=== PATIENT | male | born 1935 | race Caucasian/White ===

== ENCOUNTER 2018-03-02 07:35 | Inpatient (IN) | payer MEDICARE, MEDICAID ==
[2018-03-02] MEDS ORDERED: Albuterol/Ipratropium Neb 3 ML AERS HHN ONE ×2 (08:25→09:11)
--- NOTE | 2018-03-02 08:30 | ED Physician Chart ---
ED Chief Complaint/HPI - Patient Information Date Seen:: 03/02/18 Time Seen:: 07:50 Chief Complaint:: Fever History of Present Illness:: onset x 3 days of fever, cough, and congestion; no report of trauma, H/As, S/T, neck pain, C/P, SOB, Abd. Pain, A/N/V/D/C, chills, or urinary s/s; Allergies:: Allergies Allergy/AdvReac Type Severity Reaction Status Date / Time No Known Allergies Allergy Verified 03/02/18 07:51 Vitals:: Vital Signs - 8 hr 03/02/18 07:51 Temp 97.5 F HR 74 RR 16 BP 137/65 O2 Sat % 96 Historian:: Patient, EMS Review:: Nurse's Note Reviewed, Old Chart Reviewed, EMS run form Reviewed ED Review of Systems - Review of Systems General/Constitutional: Fever, No chills, No weight loss, No weakness, No diaphoresis, No edema, No loss of appetite Skin: No skin lesions, No rash, No bruising Head: No headache, No light-headedness Eyes: No loss of vision, No pain, No diplopia ENT: No earache, Nasal drainage, No sore throat, No tinnitus Neck: No neck pain, No swelling, No thyromegaly, No stiffness, No mass noted Cardio Vascular: No chest pain, No palpitations, No PND, No orthopnea, No edema Pulmonary: SOB, Cough, No sputum, Wheezing GI: No nausea, No vomiting, No diarrhea, No pain, No melena, No hematochezia, No constipation, No hematemesis G/U: No dysuria, No frequency, No hematuria, No nacturia Musculoskeletal: No bone or joint pain, No back pain, No muscle pain Endocrine: No polyuria, No polydipsia Psychiatric: No prior psych history, No depression, No anxiety, No suicidal ideation, No homicidal ideation, No auditory hallucination, No visual hallucination Hematopoietic: No bruising, No lymphadenopathy Allergic/Immuno: No urticaria, No angioedema Neurological: No syncope, No focal symptoms, No weakness, No paresthesia, No headache, No seizure, No dizziness, No confusion, No vertigo ED Past Medical History - Past Medical History Obtainable: Yes Past Medical History: HTN, DM, Asthma/COPD, PUD/GERD Family History: Diabetes Melitus, HTN Social History: Smoker, No Alcohol, No Drug Use, Single, Care Facility Surgical History: None Psychiatricy History: None Medication: Reviewed Family Medical History - Family Member Mother History Unknown: Yes ED Physical Exam - Physical Examination General/Constitutional: Awake, Well-developed, well-nourished, Alert, No distress, GCS 15, Non-toxic appearing, Ambulatory Head: Atraumatic Eyes: Lids, conjuctiva normal, PERRL, EOMI Skin: Nl inspection, No rash, No skin lesions, No ecchymosis, Well hydrated, No lymphadenopathy ENMT: External ears, nose nl, TM canals nl, Nasal exam nl, Lips, teeth, gums nl , Oropharynx nl, Tonsils nl Neck: Nontender, Full ROM w/o pain, No JVD, No nuchal rigidity, No bruit, No mass, No stridor Respiratory: Nl effort/Exclusion Other Respiratory comments:: Lungs: + Rales, Rhonchi, and Wheezes Cardio Vascular: RRR, No murmur, gallop, rubs, NL S1 S2, Carotid/Femoral/Distal pulses equal bilaterally GI: No tenderness/rebounding/guarding, No organomegaly, No hernia, Normal BS's, Nondistended, No mass/bruits, No McBurney tenderness : No CVA tenderness Extremities: No tenderness or effusion, Full ROM, normal strength in all extremities, No edema, Normal digits & nails Neuro/Psych: Alert/oriented, DTR's symmetric, Normal sensory exam, Normal motor strength, Judgement/insight normal, Mood normal, Normal gait, No focal deficits Misc: Normal back, No paraspinal tenderness ED Labs/Radiology/EKG Results - Lab Results Comments:: unremarkable - Radiology Results Comments:: COPD; NAD - EKG Interpretations EKG Time:: 09:17 Rate & Rhythm: 61; NSR Comments:: non-specific st-t changes ED Septic Shock - . Is Septic Shock (SBP<90, OR Lactate>4 mmol\L) present?: No - <6hrs of presentation: Vital Signs: Vital Signs - 8 hr 03/02/ 07:51 Temp 97.5 F HR 74 RR 16 BP 137/65 O2 Sat % 96 ED Reassessment (Disposition) - Reassessment Reassessment Condition:: Improved - Diagnosis Diagnosis:: Dx: Cough; Congestion; Fever; Exacerbation of COPD; Acute Bronchitis - Aftercare/Follow up Instructions Aftercare/Follow-Up Instructions:: Counseled pt regarding lab results/diagnosis & need follow up, Counseled pt & family regarding lab results/diagnosis & need follow up - Patient Disposition Discharge/Transfer:: Acute Care w/in this hosp Accepting Physician:: Dr. Castañeda Time Called:: 944 Time Responded:: 09:45 Admitted to:: Med/Surg Spoke to:: Dr. Castañeda Admitting Medical Physician:: Dr. Castañeda Condition at Disposition:: Stable, Improved
[2018-03-02 08:56] LABS: % BASOPHILS 1.6 % (0.0-2.0); % EOSINOPHILS 24.3 % (0.0-5.0); % LYMPHOCYTES 17.6 % (20.0-50.0); % MONOCYTES 6.7 % (2.0-10.0); % NEUTROPHILS 49.8 % (40.0-80.0); BASOPHILE ABSOLUTE 0.1 Th/cumm (0-0.2); EOSINOPHILE ABSOLUTE 1.7 Th/cmm (0.1-0.4); HEMATOCRIT 38.7 % (41.0-60); HEMOGLOBIN 13.2 gm/dL (12-16); LYMPHOCYTE ABSOLUTE 1.2 Th/cmm (1.5-3.0); MEAN CELL VOLUME 91.9 fl (80-99); MEAN CORPUSCULAR HEMOGLOBIN 31.3 pg (27.0-31.0); MEAN PLATELET VOLUME 10.8 fl; MONOCYTE ABSOLUTE 0.5 Th/cmm (0.3-1.0); NEUTROPHILE ABSOLUTE 3.4 Th/cmm (1.8-8.0); PLATELET COUNT 173 Th/cmm (150-400); RED BLOOD COUNT 4.21 Mil/cmm (3.80-5.80); RED CELL DISTRIBUTION WIDTH 12.8 % (11.5-20.0); WHITE BLOOD COUNT 6.9 Th/cmm (4.8-10.8)
[2018-03-02 09:12] LABS: INR 1.03 (0.5-1.4); PROTHROMBIN TIME (TEST) 10.7 SECONDS (9.5-11.5)
[2018-03-02 09:13] LABS: ALB/GLOB RATIO 1.3 (1.0-1.8); ALKALINE PHOSPHATASE 94 U/L (34-104); ANION GAP 9.4 (7.0-16.0); BILIRUBIN,TOTAL 0.5 mg/dL (0.3-1.0); BUN - UREA NITROGEN 19 mg/dL (7-25); CALCIUM SERUM 9.4 mg/dL (8.6-10.3); CARBON DIOXIDE 30.1 mEq/L (21.0-31.0); CHLORIDE 105 mEq/L (98-107); CREATININE - SERUM 0.8 mg/dL (0.7-1.3); CREATININE KINASE 65 U/L (30-223); GLUCOSE 162 mg/dL (70-105); POTASSIUM SERUM 4.5 mEq/L (3.5-5.1); SGOT 15 U/L (13-39); SGPT/ALT 15 U/L (7-52); SODIUM SERUM 140 mEq/L (136-145)
--- NOTE | 2018-03-02 09:19 | Diagnostic Imaging Report ---
Portable chest x-ray HISTORY: Pain The overall heart size is difficult to assess with portable technique. Atherosclerotic calcification seen in the aorta. No acute pulmonary processes. A 3 mm calcified nodule is noted in the left lung base consistent with old granulomatous disease. IMPRESSION: 1. No acute pulmonary processes
[2018-03-02 09:24] LABS: URINE MICROSCOPIC INDICATED? YES; URINE SOURCE MIDSTREAM
[2018-03-02 09:40] LABS: URINE BILIRUBIN NEGATIVE (NEGATIVE); URINE BLOOD NEGATIVE (NEGATIVE); URINE GLUCOSE (UA) NEGATIVE (NEGATIVE); URINE KETONE NEGATIVE (NEGATIVE); URINE LEUKOCYTE ESTERASE NEGATIVE (NEGATIVE); URINE NITRATE NEGATIVE (NEGATIVE); URINE PH 5.5 (4.6 - 8.0); URINE PROTEIN NEGATIVE (NEGATIVE); URINE UROBILINOGEN 0.2 E.U./dL (0.2 - 1.0)
[2018-03-02 09:44] LABS: URINE CLARITY CLEAR (CLEAR); URINE COLOR YELLOW
[2018-03-02 09:48] LABS: URINE BACTERIA OCCASIONAL /hpf (NONE SEEN); URINE EPITHELIAL CELLS FEW /lpf (FEW); URINE RBC NONE SEEN /hpf (0-5); URINE WBC 0-2 /hpf (0-5)
[2018-03-02] MEDS ORDERED: Levofloxacin 500mg/100mL 500 MG/100 ML BAG IV ONE (10:04)
[2018-03-02 11:02] VITALS: BP 149/69
[2018-03-02 11:49] LABS: CHOLESTEROL 171 mg/dL (<200); HDL -HIGH DENSITY LIPOPROTEIN 60 mg/dL (23-92); TRIGLYCERIDES 70 mg/dL (<150)
[2018-03-02] MEDS: Multivitamin Tab PO SCH (12:31)
[2018-03-02] MEDS: Azithromycin 500 MG in Sodium Chloride 0.9% 250 ML IV SCH (13:26)
[2018-03-02] MEDS: cefTRIAXone 1 GM in Sodium Chloride 0.9% 50 ML IV SCH (14:31)
[2018-03-02] MEDS ORDERED: INSULIN ASPART, RECOMBINANT 100 UNITS/ML SUBQ SCH (16:30)
[2018-03-02] MEDS: INSULIN ASPART SLIDING SCALE 100 UNITS/ML UNIT SUBQ SCH ×2 (17:30→23:04)
[2018-03-02] MEDS: Albuterol Nebulizer 2.5mg/3mL HHN PRN ×2 (18:54→22:36)
--- NOTE | 2018-03-02 20:31 | History and Physical ---
History of Present Illness - HPI Chief Complaint: fever and cough HPI: This is a 82 year old male who is a [facility] patient admitted for a 3 day history of fever, cough, and congestion. Vital Signs: Last Vital Signs Temp 97.7 F 03/02/18 20:00 Pulse 92 03/02/18 20:00 Resp 19 03/02/18 20:00 BP 131/68 03/02/18 20:00 Pulse Ox 96 03/02/18 20:00 Past Medical History Other History: HTN, DM, Asthma/COPD, PUD/GERD Family Medical History - Family Member Mother History Unknown: Yes Ethnicity: Social History Smoke: Quit Alcohol: None Drugs: None Lives: [facility] - Medications Home Medications: Home Medication Medication Instructions Recorded Type Acetaminophen [Pain Reliever] 650 mg PO Q4H PRN MDD 3g 03/02/18 History Albuterol Nebulizer 2.5mg/3mL 1 unit HHN Q4H PRN 03/02/18 History [Albuterol Neb UD*] Albuterol Sulfate [Ventolin Hfa] 2 puff IH Q4H PRN 03/02/18 History Ascorbic Acid 1 tab PO DAILY 03/02/18 History Docusate Sodium [Col-Rite] 1 tab PO BID 03/02/18 History Finasteride [Proscar*] 1 tab PO DAILY 03/02/18 History Fleet Enema 1 bot RC DAILY PRN 03/02/18 History Insulin Human Regular [NovoLIN R] 0 units SUBQ ACHS 03/02/18 History Magnesium Hydroxide [Milk of 30 ml PO DAILY PRN 03/02/18 History Magnesia] Multivitamin [Multivitamins] 1 cap PO DAILY 03/02/18 History Mylanta 500 mg PO Q6H PRN 03/02/18 History Tamsulosin HCl [Flomax] 1 tab PO DAILY 03/02/18 History - Allergies Allergies/Adverse Reactions: Allergies Allergy/AdvReac Type Severity Reaction Status Date / Time No Known Allergies Allergy Verified 03/02/18 07:51 Review of Systems - Review of Systems Constitutional: Report: Fever Eyes: Report: No Significant Respiratory: Report: Cough Cardiovascular: Report: No Significant Neurological: Report: No Significant Physical Exam - Physical Exam HEENT: Report: Ears Nose Throat within normal limits Neck: Report: Within normal limits Cardiovascular Systems: Report: +s1/s2 noted, Regular, Rate and Rhythm Respiratory: Report: Rhonchi Abdomen: Report: Non-tender to palpation - Assessment Assessment: COPD EXACERBATION ACUTE BRONCHITIS FEBRILE HTN DM GERD - Plan Plan: PULMO CONSULT RESPIRATORY TX/O2 CONTINUE THE REST OF THE ORDERS
[2018-03-02] MEDS ORDERED: Promethazine DM 6.25/15mg-5mL 5 ML SYR PO PRN (22:40)
[2018-03-02] MEDS ORDERED: Budesonide 0.5 Mg/2 mL Ud HHN ONE (22:49)
[2018-03-03] MEDS ORDERED: Albuterol Nebulizer 2.5mg/3mL HHN ONE (05:28)
[2018-03-03] MEDS: Albuterol Nebulizer 2.5mg/3mL HHN SCH ×6 (05:31→23:40)
[2018-03-03 06:44] LABS: % BASOPHILS 0.1 % (0.0-2.0); % EOSINOPHILS 0.1 % (0.0-5.0); % LYMPHOCYTES 10.8 % (20.0-50.0); % MONOCYTES 0.8 % (2.0-10.0); % NEUTROPHILS 88.2 % (40.0-80.0); HEMATOCRIT 38.6 % (41.0-60); HEMOGLOBIN 13.2 gm/dL (12-16); LYMPHOCYTE ABSOLUTE 0.8 Th/cmm (1.5-3.0); MEAN CELL VOLUME 92.2 fl (80-99); MEAN CORPUSCULAR HEMOGLOBIN 31.7 pg (27.0-31.0); MEAN CORPUSCULAR HGB CONC 34.3 pg (28.0-36.0); MEAN PLATELET VOLUME 10.8 fl; MONOCYTE ABSOLUTE 0.1 Th/cmm (0.3-1.0); NEUTROPHILE ABSOLUTE 6.8 Th/cmm (1.8-8.0); PLATELET COUNT 159 Th/cmm (150-400); RED BLOOD COUNT 4.18 Mil/cmm (3.80-5.80); RED CELL DISTRIBUTION WIDTH 12.6 % (11.5-20.0); WHITE BLOOD COUNT 7.7 Th/cmm (4.8-10.8)
[2018-03-03] MEDS ORDERED: Budesonide 0.5 Mg/2 mL Ud HHN SCH ×2 (07:00→22:44)
[2018-03-03 07:07] LABS: BUN - UREA NITROGEN 24 mg/dL (7-25); CALCIUM SERUM 9.6 mg/dL (8.6-10.3); CARBON DIOXIDE 29.3 mEq/L (21.0-31.0); CHLORIDE 102 mEq/L (98-107); CREATININE - SERUM 0.8 mg/dL (0.7-1.3); GLUCOSE 230 mg/dL (70-105); POTASSIUM SERUM 4.3 mEq/L (3.5-5.1); SODIUM SERUM 137 mEq/L (136-145)
[2018-03-03] MEDS: Budesonide 0.5 Mg/2 mL Ud HHN SCH ×2 (07:49→19:40)
[2018-03-03] MEDS: INSULIN ASPART SLIDING SCALE 100 UNITS/ML UNIT SUBQ SCH ×4 (08:15→20:09)
[2018-03-03] MEDS: Multivitamin Tab PO SCH (08:19)
[2018-03-03] MEDS ORDERED: Probiotic Screen MC PRN (11:43)
[2018-03-03] MEDS: Azithromycin 500 MG in Sodium Chloride 0.9% 250 ML IV SCH (12:48)
--- NOTE | 2018-03-03 14:02 | Consultation ---
DATE OF CONSULTATION: 03/02/2018 REFERRING PHYSICIAN: Gabby Castañeda M.D. Thank you very much Dr. Castañeda for this consultation. HISTORY OF PRESENT ILLNESS: This is an 82-year-old male who presents with cough, congestion, and shortness of breath for few days along with some fever. The patient was admitted for treatment and medication. The patient started IV antibiotics and nebulizer treatment. The patient has history of smoking for many years. He has past history of COPD as well. The patient appears to be comfortable, but still having some cough and shortness of breath with minimal exertion. PAST MEDICAL HISTORY: As above. SOCIAL HISTORY: Ex-smoker. REVIEW OF SYSTEMS: GENERAL: No weakness or fatigue. CARDIOVASCULAR: No chest pain. No palpitation. RESPIRATORY: Shortness of breath, cough, wheezing. GASTROINTESTINAL: No nausea or vomiting. PHYSICAL EXAMINATION: GENERAL: Awake, alert, not in acute distress. VITAL SIGNS: Temperature , pulse 78, respirations 20, blood pressure /74, and saturation 95% to 96%. HEENT: Atraumatic and normocephalic. Pupils react to light and accommodation. Ears, nose and throat normal. NECK: Supple. No JVD. CHEST: There is diffuse wheezing and rhonchi bilaterally. LABORATORY DATA: WBC 6.9, hemoglobin 13.2, and platelets is 173. Sodium 140, potassium 4.5, BUN is 19, and creatinine 0.8. The chest x-ray, no acute infiltrate. IMPRESSION: 1. This is an 82-year-old male with acute chronic obstructive pulmonary disease exacerbation. 2. Acute bronchitis. PLAN: 1. IV antibiotics. 2. IV Solu-Medrol. 3. Supportive care and pulmonary toilet. Thank you very much for this consultation. We will follow the patient with you. JOB# [id number]
[2018-03-03] MEDS: cefTRIAXone 1 GM in Sodium Chloride 0.9% 50 ML IV SCH (14:07)
--- NOTE | 2018-03-03 14:24 | General Progress Note ---
Subjective - Review of Systems Events since last encounter: fever in no distress Objective - Results Result Diagrams: 03/03/18 06:20 03/03/18 06:20 Recent Labs: Laboratory Last Values WBC 7.7 Th/cmm (4.8-10.8) 03/03/18 06:20 RBC 4.18 Mil/cmm (3.80-5.80) 03/03/18 06:20 Hgb 13.2 gm/dL (12-16) 03/03/18 06:20 Hct 38.6 % (41.0-60) L 03/03/18 06:20 MCV 92.2 fl (80-99) 03/03/18 06:20 MCH 31.7 pg (27.0-31.0) H 03/03/18 06:20 MCHC Differential 34.3 pg (28.0-36.0) 03/03/18 06:20 RDW 12.6 % (11.5-20.0) 03/03/18 06:20 Plt Count 159 Th/cmm (150-400) 03/03/18 06:20 MPV 10.8 fl 03/03/18 06:20 Neutrophils % 88.2 % (40.0-80.0) H 03/03/18 06:20 Lymphocytes % 10.8 % (20.0-50.0) L 03/03/18 06:20 Monocytes % 0.8 % (2.0-10.0) L 03/03/18 06:20 Eosinophils % 0.1 % (0.0-5.0) 03/03/18 06:20 Basophils % 0.1 % (0.0-2.0) 03/03/18 06:20 PT 10.7 SECONDS (9.5-11.5) 03/02/18 08:35 INR 1.03 (0.5-1.4) 03/02/18 08:35 PTT (Actin FS) 26.5 SECONDS (26.0-38.0) 03/02/18 08:35 Sodium 137 mEq/L (136-145) 03/03/18 06:20 Potassium 4.3 mEq/L (3.5-5.1) 03/03/18 06:20 Chloride 102 mEq/L (98-107) 03/03/18 06:20 Carbon Dioxide 29.3 mEq/L (21.0-31.0) 03/03/18 06:20 Anion Gap 10.0 (7.0-16.0) 03/03/18 06:20 BUN 24 mg/dL (7-25) 03/03/18 06:20 Creatinine 0.8 mg/dL (0.7-1.3) 03/03/18 06:20 Est GFR ( Amer) TNP 03/03/18 06:20 Est GFR (Non-Af Amer) TNP 03/03/18 06:20 BUN/Creatinine Ratio 30.0 03/03/18 06:20 Glucose 230 mg/dL (70-105) H 03/03/18 06:20 POC Glucose 351 MG/DL (70 - 105) H 03/03/18 12:33 Whole Bld Lactic Acid 1.29 mmol/L (0.60-1.99) 03/02/18 08:35 Calcium 9.6 mg/dL (8.6-10.3) 03/03/18 06:20 Total Bilirubin 0.5 mg/dL (0.3-1.0) 03/02/18 08:35 AST 15 U/L (13-39) 03/02/18 08:35 ALT 15 U/L (7-52) 03/02/18 08:35 Alkaline Phosphatase 94 U/L (34-104) 03/02/18 08:35 Creatine Kinase 65 U/L (30-223) 03/02/18 08:35 Troponin I 0.01 ng/mL (0.01-0.05) 03/02/18 08:35 Total Protein 7.0 gm/dL (6.0-8.3) 03/02/18 08:35 Albumin 4.0 gm/dL (4.2-5.5) L 03/02/18 08:35 Globulin 3.0 gm/dL 03/02/18 08:35 Albumin/Globulin Ratio 1.3 (1.0-1.8) 03/02/18 08:35 Triglycerides 70 mg/dL (<150) 03/02/18 08:35 Cholesterol 171 mg/dL (<200) 03/02/18 08:35 LDL Cholesterol Direct 99 mg/dL (75-193) 03/02/18 08:35 HDL Cholesterol 60 mg/dL (23-92) 03/02/18 08:35 Prostate Specific Ag 1.1 ng/mL (0.0-4.0) 03/02/18 08:35 Urine Source MIDSTREAM 03/02/18 09:05 Urine Color YELLOW 03/02/18 09:05 Urine Clarity CLEAR (CLEAR) 03/02/18 09:05 Urine pH 5.5 (4.6 - 8.0) 03/02/18 09:05 Ur Specific [place] >= 1.030 (1.005-1.030) 03/02/18 09:05 Urine Protein NEGATIVE mg/dL (NEGATIVE) 03/02/18 09:05 Urine Glucose (UA) NEGATIVE mg/dL (NEGATIVE) 03/02/18 09:05 Urine Ketones NEGATIVE mg/dL (NEGATIVE) 03/02/18 09:05 Urine Blood NEGATIVE (NEGATIVE) 03/02/18 09:05 Urine Nitrate NEGATIVE (NEGATIVE) 03/02/18 09:05 Urine Bilirubin NEGATIVE (NEGATIVE) 03/02/18 09:05 Urine Urobilinogen 0.2 E.U./dL (0.2 - 1.0) 03/02/18 09:05 Ur Leukocyte Esterase NEGATIVE (NEGATIVE) 03/02/18 09:05 Urine RBC NONE SEEN /hpf (0-5) 03/02/18 09:05 Urine WBC 0-2 /hpf (0-5) 03/02/18 09:05 Ur Epithelial Cells FEW /lpf (FEW) 03/02/18 09:05 Urine Bacteria OCCASIONAL /hpf (NONE SEEN) 03/02/18 09:05 Urine Mucus FEW /lpf (FEW) 03/02/18 09:05 - Physical Exam Vitals and I&O: Vital Signs Temp 98.2 F 03/03/18 11:31 Pulse 85 03/03/18 12:30 Resp 18 03/03/18 12:30 BP 120/48 03/03/18 11:31 Pulse Ox 96 03/03/18 12:30 Intake & Output 03/02/18 03/03/18 03/03/18 18:59 06:59 18:59 Intake Total 250 Balance 250 Weight (lbs) 65.771 kg 81.647 kg Intake: Intake, IV Amount 250 Azithromycin 500 mg In 250 Sodium Chloride 0.9% 250 ml @ 250 mls/hr IV Q24HR [facility] Rx#:[id number] Other: # Voids 400 Weight Source Patient stated Bedscale Active Medications: Current Medications Albuterol Sulfate (Albuterol 2.5mg/3ml Neb Ud) 2.5 mg HHN Q4HRT [facility]ANNA Stop: 05/02/18 05:20 Last Admin: 03/03/18 12:30 Dose: 2.5 mg Ascorbic Acid (Vitamin C) 500 mg PO DAILY B[facility]ANNA Stop: 05/01/18 11:44 Last Admin: 03/03/18 08:19 Dose: 500 mg Budesonide (Pulmicort) 0.5 mg HHN BIDRT [facility]ANNA Stop: 05/02/18 06:59 Last Admin: 03/03/18 07:49 Dose: 0.5 mg Docusate Sodium (Colace) 100 mg PO DAILY [facility] Stop: 05/01/18 11:59 Last Admin: 03/03/18 08:19 Dose: 100 mg Finasteride (Proscar) 5 mg PO DAILY [facility]ANNA PRN Reason: Protocol Stop: 05/02/18 08:59 Last Admin: 03/03/18 08:19 Dose: 5 mg Azithromycin 500 mg/ Sodium (Chloride) 250 mls @ 250 mls/hr IV Q24HR [facility] Stop: 05/01/18 12:59 Last Admin: 03/03/18 12:48 Dose: 250 mls/hr Ceftriaxone Sodium 1 gm/ (Sodium Chloride) 50 mls @ 100 mls/hr IV Q24HR [facility] Stop: 05/01/18 13:59 Last Admin: 03/02/18 14:31 Dose: 100 mls/hr Insulin Aspart (Novolog Insulin Sliding Scale) 0 units SUBQ ACHS [facility] PRN Reason: Protocol Stop: 05/01/18 16:29 Last Admin: 03/03/18 12:37 Dose: 10 units Methylprednisolone Sodium Succinate (Solu-Medrol) 80 mg IVP Q6HR [facility] Stop: 05/02/18 00:00 Last Admin: 03/03/18 12:39 Dose: 80 mg Miscellaneous (Probiotic Screen) 1 ea MC PRN PRN PRN Reason: PROTOCOL Stop: 05/02/18 11:42 Multivitamins/Vitamin C (Theragran) 1 tab PO DAILY [facility] Stop: 05/01/18 11:44 Last Admin: 03/03/18 08:19 Dose: 1 tab Promethazine HCl/Dextromethorphan (Phenergan Dm 6.25/15mg-5 Ml) 10 ml PO Q4H PRN PRN Reason: Cough Stop: 05/01/18 22:39 Tamsulosin HCl (Flomax) 0.4 mg PO QDPC [facility]ANNA Stop: 05/02/18 08:29 Last Admin: 03/03/18 08:19 Dose: 0.4 mg Assessment/Plan - Assessment Assessment: COPD EXACERBATION ACUTE BRONCHITIS FEBRILE HTN DM GERD - Plan Plan: PULMO CONSULT RESPIRATORY TX/O2 CONTINUE THE REST OF THE ORDERS
[2018-03-03] MEDS ORDERED: MYLANTA PO PRN (19:52)
[2018-03-03] MEDS ORDERED: Magnesium Hydroxide (MOM) 30 mL UDC PO PRN (19:52)
[2018-03-03] MEDS ORDERED: Albuterol Nebulizer 2.5mg/3mL HHN PRN (19:52)
[2018-03-03] MEDS ORDERED: Fleet Enema 135 mL RC PRN (19:52)
[2018-03-03] MEDS ORDERED: Non-Formulary Item 1 EA (Albuterol Sulfate [Ventolin Hfa] 2 PUFF) IH PRN (19:52)
[2018-03-03] MEDS ORDERED: INSULIN HUMAN REGULAR 100 UNITS/ML UNIT SUBQ SCH (21:00)
[2018-03-03] MEDS ORDERED: Albuterol Nebulizer 2.5mg/3mL HHN SCH (22:42)
[2018-03-04] MEDS: Albuterol Nebulizer 2.5mg/3mL HHN SCH ×6 (03:28→23:36)
[2018-03-04] MEDS: INSULIN ASPART SLIDING SCALE 100 UNITS/ML UNIT SUBQ SCH ×4 (06:30→20:31)
[2018-03-04 06:36] LABS: HEMATOCRIT 37.1 % (41.0-60); HEMOGLOBIN 12.4 gm/dL (12-16); LYMPHOCYTE ABSOLUTE 0.6 Th/cmm (1.5-3.0); MEAN CELL VOLUME 92.9 fl (80-99); MEAN CORPUSCULAR HEMOGLOBIN 31.1 pg (27.0-31.0); MEAN CORPUSCULAR HGB CONC 33.5 pg (28.0-36.0); MEAN PLATELET VOLUME 11.4 fl; MONOCYTE ABSOLUTE 0.2 Th/cmm (0.3-1.0); NEUTROPHILE ABSOLUTE 9.8 Th/cmm (1.8-8.0); PLATELET COUNT 162 Th/cmm (150-400); RED CELL DISTRIBUTION WIDTH 12.8 % (11.5-20.0); WHITE BLOOD COUNT 10.6 Th/cmm (4.8-10.8)
[2018-03-04 06:44] LABS: % BASOPHILS 0.3 % (0.0-2.0); % EOSINOPHILS 0.3 % (0.0-5.0); % LYMPHOCYTES 5.9 % (20.0-50.0); % MONOCYTES 1.5 % (2.0-10.0)
[2018-03-04] MEDS: Budesonide 0.5 Mg/2 mL Ud HHN SCH ×2 (06:45→18:57)
[2018-03-04 06:49] LABS: ANION GAP 10.8 (7.0-16.0); BUN - UREA NITROGEN 33 mg/dL (7-25); CALCIUM SERUM 9.3 mg/dL (8.6-10.3); CARBON DIOXIDE 26.7 mEq/L (21.0-31.0); CHLORIDE 101 mEq/L (98-107); CREATININE - SERUM 0.9 mg/dL (0.7-1.3); GLUCOSE 388 mg/dL (70-105); POTASSIUM SERUM 4.5 mEq/L (3.5-5.1); SODIUM SERUM 134 mEq/L (136-145)
[2018-03-04] MEDS: Multivitamin Tab PO SCH (08:20)
[2018-03-04] MEDS ORDERED: Maalox 30 mL Cup PO PRN (08:53)
[2018-03-04] MEDS ORDERED: Multivitamin Tab PO SCH (09:00)
[2018-03-04] MEDS ORDERED: Non-Formulary Item 1 EA (Multivitamin [Multivitamins] 1 CAP) PO SCH (09:00)
--- NOTE | 2018-03-04 09:48 | General Progress Note ---
Subjective - Review of Systems Events since last encounter: in no distress Objective - Results Result Diagrams: 03/04/18 05:51 03/04/18 05:51 Recent Labs: Laboratory Last Values WBC 10.6 Th/cmm (4.8-10.8) 03/04/18 05:51 RBC 4.00 Mil/cmm (3.80-5.80) 03/04/18 05:51 Hgb 12.4 gm/dL (12-16) 03/04/18 05:51 Hct 37.1 % (41.0-60) L 03/04/18 05:51 MCV 92.9 fl (80-99) 03/04/18 05:51 MCH 31.1 pg (27.0-31.0) H 03/04/18 05:51 MCHC Differential 33.5 pg (28.0-36.0) 03/04/18 05:51 RDW 12.8 % (11.5-20.0) 03/04/18 05:51 Plt Count 162 Th/cmm (150-400) 03/04/18 05:51 MPV 11.4 fl 03/04/18 05:51 Neutrophils % 92.0 % (40.0-80.0) H 03/04/18 05:51 Lymphocytes % 5.9 % (20.0-50.0) L 03/04/18 05:51 Monocytes % 1.5 % (2.0-10.0) L 03/04/18 05:51 Eosinophils % 0.3 % (0.0-5.0) 03/04/18 05:51 Basophils % 0.3 % (0.0-2.0) 03/04/18 05:51 PT 10.7 SECONDS (9.5-11.5) 03/02/18 08:35 INR 1.03 (0.5-1.4) 03/02/18 08:35 PTT (Actin FS) 26.5 SECONDS (26.0-38.0) 03/02/18 08:35 Sodium 134 mEq/L (136-145) L 03/04/18 05:51 Potassium 4.5 mEq/L (3.5-5.1) 03/04/18 05:51 Chloride 101 mEq/L (98-107) 03/04/18 05:51 Carbon Dioxide 26.7 mEq/L (21.0-31.0) 03/04/18 05:51 Anion Gap 10.8 (7.0-16.0) 03/04/18 05:51 BUN 33 mg/dL (7-25) H 03/04/18 05:51 Creatinine 0.9 mg/dL (0.7-1.3) 03/04/18 05:51 Est GFR ( Amer) TNP 03/04/18 05:51 Est GFR (Non-Af Amer) TNP 03/04/18 05:51 BUN/Creatinine Ratio 36.7 03/04/18 05:51 Glucose 388 mg/dL (70-105) H D 03/04/18 05:51 POC Glucose 370 MG/DL (70 - 105) H 03/04/18 05:22 Hemoglobin A1c % 12.0 % (4.0-6.0) H 03/03/18 06:20 Whole Bld Lactic Acid 1.29 mmol/L (0.60-1.99) 03/02/18 08:35 Calcium 9.3 mg/dL (8.6-10.3) 03/04/18 05:51 Total Bilirubin 0.5 mg/dL (0.3-1.0) 03/02/18 08:35 AST 15 U/L (13-39) 03/02/18 08:35 ALT 15 U/L (7-52) 03/02/18 08:35 Alkaline Phosphatase 94 U/L (34-104) 03/02/18 08:35 Creatine Kinase 65 U/L (30-223) 03/02/18 08:35 Troponin I 0.01 ng/mL (0.01-0.05) 03/02/18 08:35 Total Protein 7.0 gm/dL (6.0-8.3) 03/02/18 08:35 Albumin 4.0 gm/dL (4.2-5.5) L 03/02/18 08:35 Globulin 3.0 gm/dL 03/02/18 08:35 Albumin/Globulin Ratio 1.3 (1.0-1.8) 03/02/18 08:35 Triglycerides 70 mg/dL (<150) 03/02/18 08:35 Cholesterol 171 mg/dL (<200) 03/02/18 08:35 LDL Cholesterol Direct 99 mg/dL (75-193) 03/02/18 08:35 HDL Cholesterol 60 mg/dL (23-92) 03/02/18 08:35 Prostate Specific Ag 1.1 ng/mL (0.0-4.0) 03/02/18 08:35 Urine Source MIDSTREAM 03/02/18 09:05 Urine Color YELLOW 03/02/18 09:05 Urine Clarity CLEAR (CLEAR) 03/02/18 09:05 Urine pH 5.5 (4.6 - 8.0) 03/02/18 09:05 Ur Specific [place] >= 1.030 (1.005-1.030) 03/02/18 09:05 Urine Protein NEGATIVE mg/dL (NEGATIVE) 03/02/18 09:05 Urine Glucose (UA) NEGATIVE mg/dL (NEGATIVE) 03/02/18 09:05 Urine Ketones NEGATIVE mg/dL (NEGATIVE) 03/02/18 09:05 Urine Blood NEGATIVE (NEGATIVE) 03/02/18 09:05 Urine Nitrate NEGATIVE (NEGATIVE) 03/02/18 09:05 Urine Bilirubin NEGATIVE (NEGATIVE) 03/02/18 09:05 Urine Urobilinogen 0.2 E.U./dL (0.2 - 1.0) 03/02/18 09:05 Ur Leukocyte Esterase NEGATIVE (NEGATIVE) 03/02/18 09:05 Urine RBC NONE SEEN /hpf (0-5) 03/02/18 09:05 Urine WBC 0-2 /hpf (0-5) 03/02/18 09:05 Ur Epithelial Cells FEW /lpf (FEW) 03/02/18 09:05 Urine Bacteria OCCASIONAL /hpf (NONE SEEN) 03/02/18 09:05 Urine Mucus FEW /lpf (FEW) 03/02/18 09:05 - Physical Exam Vitals and I&O: Vital Signs Temp 97.2 F 03/04/18 04:00 Pulse 95 03/04/18 06:55 Resp 20 03/04/18 06:55 BP 122/53 03/04/18 04:00 Pulse Ox 100 03/04/18 06:55 Intake & Output 03/03/18 03/04/18 03/04/18 18:59 06:59 18:59 Intake Total 540 Output Total 850 Balance -310 Weight (lbs) 81.647 kg Intake: Intake, IV Amount 300 Azithromycin 500 mg In 250 Sodium Chloride 0.9% 250 ml @ 250 mls/hr IV Q24HR [facility] Rx#:[id number] cefTRIAXone 1 gm In 50 Sodium Chloride 0.9% 50 ml @ 100 mls/hr IV Q24HR [facility] Rx#:[id number] Oral 240 Output: Urine 850 Other: # Voids 2 # Bowel Movements 1 Weight Source Bedscale Active Medications: Current Medications Acetaminophen (Tylenol) 650 mg PO Q4H PRN PRN Reason: Pain (Mild) Al Hydrox/Mg Hydrox/Simethicone (Maalox) 30 ml PO Q6H PRN PRN Reason: GI DISTRESS Stop: 05/03/18 08:52 Albuterol Sulfate (Albuterol 2.5mg/3ml Neb Ud) 2.5 mg HHN Q4HRT [facility] Stop: 05/02/18 05:20 Last Admin: 03/04/18 06:45 Dose: 2.5 mg Albuterol Sulfate (Albuterol 2.5mg/3ml Neb Ud) 2.5 mg HHN Q4H PRN PRN Reason: Shortness of Breath Stop: 05/02/18 19:51 Ascorbic Acid (Vitamin C) 500 mg PO DAILY [facility] Stop: 05/01/18 11:44 Last Admin: 03/04/18 08:20 Dose: 500 mg Ascorbic Acid (Vitamin C) 500 mg PO DAILY [facility] Stop: 05/03/18 08:59 Last Admin: 03/04/18 09:13 Dose: Not Given Budesonide (Pulmicort) 0.5 mg HHN BIDRT [facility] Stop: 05/02/18 06:59 Last Admin: 03/04/18 06:45 Dose: 0.5 mg Docusate Sodium (Colace) 100 mg PO DAILY [facility] Stop: 05/01/18 11:59 Last Admin: 03/04/18 08:20 Dose: 100 mg Docusate Sodium (Colace) 100 mg PO BID [facility] Stop: 05/03/18 08:59 Last Admin: 03/04/18 09:14 Dose: Not Given Finasteride (Proscar) 5 mg PO DAILY [facility] PRN Reason: Protocol Stop: 05/02/18 08:59 Last Admin: 03/04/18 08:20 Dose: 5 mg Finasteride (Proscar) 5 mg PO DAILY [facility]ANNA PRN Reason: Protocol Stop: 05/03/18 08:59 Last Admin: 03/04/18 09:14 Dose: Not Given Azithromycin 500 mg/ Sodium (Chloride) 250 mls @ 250 mls/hr IV Q24HR [facility] Stop: 05/01/18 12:59 Last Infusion: 03/03/18 19:01 Dose: Infused Ceftriaxone Sodium 1 gm/ (Sodium Chloride) 50 mls @ 100 mls/hr IV Q24HR [facility] Stop: 05/01/18 13:59 Last Infusion: 03/03/18 19:01 Dose: Infused Insulin Aspart (Novolog Insulin Sliding Scale) 0 units SUBQ ACHS [facility]ANNA PRN Reason: Protocol Stop: 05/01/18 16:29 Last Admin: 03/04/18 06:30 Dose: 10 units Magnesium Hydroxide (Milk Of Magnesia) 30 ml PO DAILY PRN PRN Reason: Constipation Stop: 05/02/18 19:51 Methylprednisolone Sodium Succinate (Solu-Medrol) 80 mg IVP Q8HR [facility] Stop: 05/02/18 20:59 Last Admin: 03/04/18 05:24 Dose: 80 mg Miscellaneous (Probiotic Screen) 1 ea MC PRN PRN PRN Reason: PROTOCOL Stop: 05/02/18 11:42 Multivitamins/Vitamin C (Theragran) 1 tab PO DAILY [facility] Stop: 05/01/18 11:44 Last Admin: 03/04/18 08:20 Dose: 1 tab Multivitamins/Vitamin C (Theragran) 1 tab PO DAILY [facility] Stop: 05/03/18 08:59 Last Admin: 03/04/18 09:14 Dose: Not Given Promethazine HCl/Dextromethorphan (Phenergan Dm 6.25/15mg-5 Ml) 10 ml PO Q4H PRN PRN Reason: Cough Stop: 05/01/18 22:39 Last Admin: 03/04/18 05:25 Dose: 10 ml Sodium Phosphate (Fleet Enema) 135 ml RC DAILY PRN PRN Reason: Constipation Stop: 05/02/18 19:51 Tamsulosin HCl (Flomax) 0.4 mg PO QDPC [facility] Stop: 05/02/18 08:29 Last Admin: 03/04/18 08:19 Dose: 0.4 mg Tamsulosin HCl (Flomax) 0.4 mg PO DAILY [facility] Stop: 05/03/18 08:59 Last Admin: 03/04/18 09:15 Dose: Not Given Assessment/Plan - Assessment Assessment: COPD EXACERBATION ACUTE BRONCHITIS FEBRILE HTN DM GERD - Plan Plan: PULMO CONSULT RESPIRATORY TX/O2 CONTINUE THE REST OF THE ORDERS
[2018-03-04] MEDS: Azithromycin 500 MG in Sodium Chloride 0.9% 250 ML IV SCH (14:18)
[2018-03-04] MEDS: cefTRIAXone 1 GM in Sodium Chloride 0.9% 50 ML IV SCH (15:47)
[2018-03-04] MEDS: Insulin Detemir 100 units/mL 10mL Vial SUBQ SCH (17:43)
[2018-03-04] MEDS: methylPREDNISolone SS 40 mg Vial IVP SCH (20:31)
[2018-03-05] MEDS: Albuterol Nebulizer 2.5mg/3mL HHN SCH ×6 (03:56→22:49)
[2018-03-05] MEDS: Budesonide 0.5 Mg/2 mL Ud HHN SCH ×2 (07:31→18:57)
[2018-03-05 07:40] LABS: % BASOPHILS 0.9 % (0.0-2.0); % EOSINOPHILS 0.1 % (0.0-5.0); % LYMPHOCYTES 6.2 % (20.0-50.0); % MONOCYTES 4.2 % (2.0-10.0); % NEUTROPHILS 88.6 % (40.0-80.0); BASOPHILE ABSOLUTE 0.1 Th/cumm (0-0.2); HEMOGLOBIN 11.8 gm/dL (12-16); LYMPHOCYTE ABSOLUTE 0.5 Th/cmm (1.5-3.0); MEAN CELL VOLUME 92.3 fl (80-99); MEAN CORPUSCULAR HEMOGLOBIN 31.1 pg (27.0-31.0); MEAN CORPUSCULAR HGB CONC 33.7 pg (28.0-36.0); MEAN PLATELET VOLUME 9.9 fl; MONOCYTE ABSOLUTE 0.4 Th/cmm (0.3-1.0); NEUTROPHILE ABSOLUTE 7.4 Th/cmm (1.8-8.0); PLATELET COUNT 127 Th/cmm (150-400); RED BLOOD COUNT 3.79 Mil/cmm (3.80-5.80); RED CELL DISTRIBUTION WIDTH 12.9 % (11.5-20.0); WHITE BLOOD COUNT 8.4 Th/cmm (4.8-10.8)
[2018-03-05] MEDS: INSULIN ASPART SLIDING SCALE 100 UNITS/ML UNIT SUBQ SCH ×4 (07:46→20:24)
[2018-03-05] MEDS: methylPREDNISolone SS 40 mg Vial IVP SCH ×2 (08:24→20:25)
[2018-03-05] MEDS: Multivitamin Tab PO SCH (08:25)
[2018-03-05] MEDS: Insulin Detemir 100 units/mL 10mL Vial SUBQ SCH ×2 (08:26→16:49)
[2018-03-05] MEDS: Azithromycin 500 MG in Sodium Chloride 0.9% 250 ML IV SCH (12:45)
[2018-03-05] MEDS ORDERED: Albuterol Nebulizer 2.5mg/3mL HHN ONE (12:46)
[2018-03-05] MEDS: cefTRIAXone 1 GM in Sodium Chloride 0.9% 50 ML IV SCH (14:22)
[2018-03-06] MEDS: Albuterol Nebulizer 2.5mg/3mL HHN SCH ×4 (02:48→15:29)
[2018-03-06 07:31] LABS: % BASOPHILS 0.1 % (0.0-2.0); % LYMPHOCYTES 12.1 % (20.0-50.0); % NEUTROPHILS 81.8 % (40.0-80.0); HEMATOCRIT 35.4 % (41.0-60); LYMPHOCYTE ABSOLUTE 0.8 Th/cmm (1.5-3.0); MEAN CELL VOLUME 91.8 fl (80-99); MEAN CORPUSCULAR HGB CONC 33.8 pg (28.0-36.0); MONOCYTE ABSOLUTE 0.4 Th/cmm (0.3-1.0); NEUTROPHILE ABSOLUTE 5.1 Th/cmm (1.8-8.0); PLATELET COUNT 125 Th/cmm (150-400); RED BLOOD COUNT 3.86 Mil/cmm (3.80-5.80); RED CELL DISTRIBUTION WIDTH 12.7 % (11.5-20.0); WHITE BLOOD COUNT 6.3 Th/cmm (4.8-10.8)
[2018-03-06 07:42] LABS: ANION GAP 8.2 (7.0-16.0); BUN - UREA NITROGEN 29 mg/dL (7-25); CALCIUM SERUM 8.8 mg/dL (8.6-10.3); CARBON DIOXIDE 31.1 mEq/L (21.0-31.0); CHLORIDE 104 mEq/L (98-107); CREATININE - SERUM 0.7 mg/dL (0.7-1.3); GLUCOSE 148 mg/dL (70-105); POTASSIUM SERUM 4.3 mEq/L (3.5-5.1); SODIUM SERUM 139 mEq/L (136-145)
[2018-03-06] MEDS: Budesonide 0.5 Mg/2 mL Ud HHN SCH (07:51)
[2018-03-06] MEDS: INSULIN ASPART SLIDING SCALE 100 UNITS/ML UNIT SUBQ SCH ×2 (08:43→12:36)
[2018-03-06] MEDS: Multivitamin Tab PO SCH (09:26)
[2018-03-06] MEDS: methylPREDNISolone SS 40 mg Vial IVP SCH (09:27)
[2018-03-06] MEDS: Insulin Detemir 100 units/mL 10mL Vial SUBQ SCH (09:27)
[2018-03-06] MEDS: Azithromycin 500 MG in Sodium Chloride 0.9% 250 ML IV SCH (12:32)
--- NOTE | 2018-03-07 06:02 | Progress Notes ---
DATE: 03/06/2018 SUBJECTIVE: The patient was seen in his room. Per patient he still has some episodes of wheezing and coughing, but otherwise able to tolerate activities still on oxygen at 2 liters by nasal cannula. Otherwise, the patient appears to be in no acute distress. OBJECTIVE: VITAL SIGNS: Temperature 98.7, heart rate of 79, respirations of 16, blood pressure 139/60, 98% on 2 liters via nasal cannula. HEENT: Head is atraumatic and normocephalic. Eyes: Bilateral conjunctivae are clear. Bilateral pupils are equally round and reactive. NECK: Supple. No JVD. CARDIOVASCULAR: S1 and S2, without murmur. [id number]: Mild inspiratory wheezing noted. GASTROINTESTINAL: Soft and nontender without guarding. Positive bowel sounds. MUSCULOSKELETAL: No clubbing. No cyanosis noted. ASSESSMENT: 1. Exacerbation of chronic obstructive pulmonary disease. 2. Acute bronchitis. 3. Hypertension. 4. Diabetes. 5. Gastroesophageal reflux disease. PLAN: We will continue breathing treatment. The patient is cleared to be discharged to half-way facility once cleared from other consultants. The patient will be going to [facility]. Treatment plans were discussed with the patient, with the patient's nurse and with Dr. Castañeda. JOB# [id number]
== END 2018-03-06 15:56 | DRG 192 ==
LOC: EDBD 07:35 → ER 07:35 → MSI 10:20
PROVIDERS: ADMIT Internal Medicine; ATTEND Internal Medicine
DX: J44.0 Chronic obstructive pulmonary disease with (acute) lower respiratory infection (principal); J20.9 Acute bronchitis, unspecified; J44.1 Chronic obstructive pulmonary disease with (acute) exacerbation; I10 Essential (primary) hypertension; E11.9 Type 2 diabetes mellitus without complications; K21.9 Gastro-esophageal reflux disease without esophagitis; Z83.3 Family history of diabetes mellitus; Z82.49 Family history of ischemic heart disease and other diseases of the circulatory system; Z87.11 Personal history of peptic ulcer disease; Z87.891 Personal history of nicotine dependence
CPT/HCPCS: 36415-UA; 71045-TC; 80048-TC; 80053-TC; 80061-TC; 81001-TC; 82550-TC; 82948-90; 83036-90; 83605; 84153-90; 84484-TC; 85007-TC; 85025-TC; 85027-TC; 85610-TC; 85730-TC; 93005; 94640; 94760; J0456; J0696; J1815; J1956; J2920; J2930; J7613; Z7610